=== PATIENT | male | born 1960 | race Two or more races ===

== ENCOUNTER 2019-11-02 21:22 | Inpatient (IN) | payer OTHER ==
--- NOTE | 2019-11-02 22:18 | PDOC ---
History of Present Illness - General Chief Complaint: Hematuria Stated Complaint: SURGERY Time Seen by Provider: 11/02/19 22:18 History Source: Patient Exam Limitations: No Limitations - History of Present Illness Initial Comments: 59 year old male with PMH HTN, HLD, BPH, CAD s/p 2 stents on ASA/Plavix (last took x5 days ago) presented to ED for hematuria s/p prostate biopsy today. Pt reported Dr. Melgar performed his procedure today, he saw blood mixed into his urine immediately, was told it was normal and would decrease. The urine turned to mohit blood, he called Dr. Melgar, who recommended he come to ED. Pt reported slight lightheadedness with activity. Pt denied chest pain, shortness of breath, abdominal pain, back pain, nausea, vomiting, diarrhea, constipation. Pt reported he does not feel he is retaining fluid, but does not think his usual Lasix 40 mg PO gave him the same urine output as usual. Pt actively voiding urine into a urinal. Pt reported he is on two antibiotics Dr. Melgar prescribed. ROS General: denied fever, chills, generalized weakness. HEENT: denied sore throat, rhinorrhea, ear pain. Cardiovascular: denied chest pain, palpitations, syncope, diaphoresis. Respiratory: denied shortness of breath, cough, sputum production, hemoptysis. Gastrointestinal: denied abdominal pain, nausea, vomiting, diarrhea, constipation, blood in stool. Genitourinary: admitted to hematuria. denied dysuria, increased urinary frequency, urinary incontinence, flank pain. Back: denied back pain. Musculoskeletal: denied joint pain, muscle pain, joint swelling. Neurological: denied headache, dizziness, numbness, tingling, weakness. Integumentary: denied rash, laceration, abrasion. Hematologic/Lymphatic: denied bruising or bleeding. PE Constitutional: Well-nourished, Well-developed, appearing stated age. HEENT: head is normocephalic, atraumatic. EOMI. PERRLA. Neck: supple. Full ROM. Cardiovascular: regular heart rhythm. no murmurs. no pericardial friction rub. Respiratory: clear to auscultation bilaterally. no crackles, rhonchi or wheezing. no stridor. Gastrointestinal: soft, nontender. no distension. normal bowel sounds. no rebound, guarding, masses. Back: negative for CVA tenderness bilaterally. Extremities: peripheral pulses intact. no lower extremity edema. Neurological: CN 2-12 grossly intact. moves all four extremities. Psych: awake, alert, oriented x3. follows commands. answers questions appropriately. Past History - Past Medical History Allergies/Adverse Reactions: Allergies Allergy/AdvReac Type Severity Reaction Status Date / Time No Known Allergies Allergy Verified 11/03/19 03:55 Home Medications: Ambulatory Orders Aspirin [ASA -] 81 mg PO DAILY 06/22/12 Clopidogrel Bisulfate [Plavix -] 75 mg PO DAILY 06/22/12 Furosemide [Lasix -] 40 mg PO DAILY 06/22/12 Ramipril [Altace] 5 mg PO DAILY 06/22/12 Carvedilol Phosphate [Coreg Cr -] 20 mg PO DAILY 04/29/15 Potassium Chloride [Klor-Con 10] 10 meq PO DAILY 04/29/15 Simvastatin [Zocor -] 40 mg PO HS 04/29/15 Pantoprazole Sodium 40 mg PO DAILY 11/02/19 Tadalafil 5 mg PO DAILY 11/02/19 - Psycho Social/Smoking Cessation Hx Smoking Status: Yes Smoking History: Former smoker Have you smoked in the past 12 months: Yes Number of Cigarettes Smoked Daily: 20 Information on smoking cessation initiated: No 'Breaking Loose' booklet given: 04/29/15 Hx Alcohol Use: No Substance Use Type: None *Physical Exam - Vital Signs Last Vital Signs Temp Pulse Resp BP Pulse Ox 98.2 F 89 19 135/77 98 11/02/19 21:26 11/02/19 21:26 11/02/19 21:26 11/02/19 21:26 11/02/19 21:26 ED Treatment Course - LABORATORY CBC & Chemistry Diagram: 11/04/19 07:50 11/04/19 07:55 Medical Decision Making - Medical Decision Making 59 year old male with above PMH sent to ED by Dr. Melgar for mohit hematuria after prostate biopsy today. Initial Vital Signs Temp Pulse Resp BP Pulse Ox 98.2 F 89 19 135/77 98 11/02/19 21:26 11/02/19 21:26 11/02/19 21:26 11/02/19 21:26 11/02/19 21:26 Afebrile. No tachycardia. No tachypnea. Hypertensive. No hypoxia on room air. Labs ordered: CBC, CMP, coags, UA/UC Imaging ordered: none Medications ordered: none Bedside Urinary Bladder POCUS showed: 566 cc urine post-void. debris material noted in bladder. Bedside Bilateral Renal POCUS showed: no hydronephrosis bilaterally. right kidney showed fluid filled well circumscribed collection, parapelvic cyst vs hydroureter vs hydronephrosis. -Old US showed right renal cyst 04/30/15 11/02/19 23:55 CBC WBC 10.4 K/mm3 (4.0-10.0) H 11/02/19 22:33 RBC 4.51 M/mm3 (4.00-5.60) 11/02/19 22:33 Hgb 12.2 GM/dL (11.7-16.9) 11/02/19 22:33 Hct 38.2 % (35.4-49) 11/02/19 22:33 MCV 84.7 fl (80-96) 11/02/19 22:33 MCH 27.0 pg (25.7-33.7) D 11/02/19 22:33 MCHC 31.9 g/dl (32.0-35.9) L 11/02/19 22:33 RDW 15.4 % (11.9-15.9) D 11/02/19 22:33 Plt Count 201 K/MM3 (134-434) D 11/02/19 22:33 MPV 10.0 fl (7.5-11.1) 11/02/19 22:33 Absolute Neuts (auto) 8.3 K/mm3 (1.5-8.0) H 11/02/19 22:33 Neutrophils % 79.9 % (42.8-82.8) 11/02/19 22:33 Lymphocytes % 12.2 % (8-40) D 11/02/19 22:33 Monocytes % 6.1 % (3.8-10.2) 11/02/19 22:33 Eosinophils % 1.1 % (0-4.5) 11/02/19 22:33 Basophils % 0.7 % (0-2.0) 11/02/19 22:33 Nucleated RBC % 0 % (0-0) 11/02/19 22:33 CMP Sodium 140 mmol/L (136-145) 11/02/19 22:33 Potassium 4.5 mmol/L (3.5-5.1) 11/02/19 22:33 Chloride 107 mmol/L (98-107) 11/02/19 22:33 Carbon Dioxide 28 mmol/L (21-32) 11/02/19 22:33 Anion Gap 5 MMOL/L (8-16) L 11/02/19 22:33 BUN 26.8 mg/dL (7-18) H 11/02/19 22:33 Creatinine 1.3 mg/dL (0.55-1.3) 11/02/19 22:33 Est GFR (CKD-EPI)AfAm 68.74 11/02/19 22:33 Est GFR (CKD-EPI)NonAf 59.31 11/02/19 22:33 Random Glucose 116 mg/dL (74-106) H 11/02/19 22:33 Calcium 8.6 mg/dL (8.5-10.1) 11/02/19 22:33 Total Bilirubin 0.3 mg/dL (0.2-1) 11/02/19 22:33 AST 18 U/L (15-37) 11/02/19 22:33 ALT 25 U/L (13-61) 11/02/19 22:33 Alkaline Phosphatase 66 U/L (45-117) 11/02/19 22:33 Total Protein 6.4 g/dl (6.4-8.2) 11/02/19 22:33 Albumin 3.3 g/dl (3.4-5.0) L 11/02/19 22:33 Dr. Melgar recommended Edwards 20F with leg bag and discharge. Pt to follow with him in the office tomorrow morning at [address] Melgar reported pt is on Flagyl and Augmentin. 11/03/19 00:07 Pt signed out to Dr. Britt, pending Edwards placement and UA collection. Discharge - Discharge Information Problems reviewed: Yes Clinical Impression/Diagnosis: Urinary retention Hematuria Qualifiers: Hematuria type: gross Qualified Code(s): R31.0 - Gross hematuria Condition: Improved Disposition: HOME - Admission No - Follow up/Referral - Patient Discharge Instructions - Post Discharge Activity
--- NOTE | 2019-11-02 23:03 | PDOC ---
Attending Attestation - Resident Resident Name: Elma Arnett - ED Attending Attestation I have performed the following: I have examined & evaluated the patient, The case was reviewed & discussed with the resident, I agree w/resident's findings & plan, Exceptions are as noted - HPI HPI: 11/03/19 03:10 See HPI documented by resident - Physicial Exam PE: 11/03/19 03:10 Agree with exam as documented by resident - Medical Decision Making 11/03/19 03:11 Glynn hematuria after prostate biopsy today, sent in by his urologist for evaluation. Initial gimenez that was placed initially was just hematuria but stopped flowing 2 /2 clots CBI was initiated, required repeated manual irrigation due to high clot load Admit Will continue CBI Dr Melgar to see at 9am
[2019-11-02 23:26] LABS: BASO % 0.7 % (0-2.0); EOS % 1.1 % (0-4.5); HEMATOCRIT 38.2 % (35.4-49); HEMOGLOBIN 12.2 GM/dL (11.7-16.9); LYMPH % 12.2 % (8-40); MCHC 31.9 g/dl (32.0-35.9); MEAN CELL VOLUME 84.7 fl (80-96); MONO % 6.1 % (3.8-10.2); NEUT % 79.9 % (42.8-82.8); PLATELET COUNT 201 K/MM3 (134-434); RBC 4.51 M/mm3 (4.00-5.60); RDW 15.4 % (11.9-15.9); WHITE BLOOD COUNT 10.4 K/mm3 (4.0-10.0)
[2019-11-02 23:40] LABS: INR 1.03 (0.83-1.09); PROTHROMBIN TIME (PATIENT) 12.1 SEC (9.7-13.0)
[2019-11-02 23:42] LABS: ACTIVATED PTT 30.4 SECONDS (25.2-36.5)
[2019-11-02 23:52] LABS: ALBUMIN 3.3 g/dl (3.4-5.0); BILIRUBIN,TOTAL 0.3 mg/dL (0.2-1); BLOOD UREA NITROGEN 26.8 mg/dL (7-18); CALCIUM 8.6 mg/dL (8.5-10.1); CREATININE 1.3 mg/dL (0.55-1.3); POTASSIUM 4.5 mmol/L (3.5-5.1); TOT PROT 6.4 g/dl (6.4-8.2)
[2019-11-03] MEDS ORDERED: LIDOCAINE HCL 2% JELLY 10 ML CARTRIDGE ONE ×2 (00:04→00:59)
[2019-11-03] MEDS ORDERED: LIDOCAINE HCL 2% JELLY 10 ML CARTRIDGE UR ONE (00:10)
[2019-11-03] MEDS ORDERED: morphine CARPU-JECT 4 MG/1 ML DISP.SYRIN IVPUSH ONE (00:48)
[2019-11-03] MEDS ORDERED: morphine SULFATE 4 MG/ML VIAL ONE (01:05)
[2019-11-03] MEDS ORDERED: HYDROmorphone HCL CARPU-JECT 2 MG/1 ML DISP.SYRIN IVPUSH ONE (01:36)
--- NOTE | 2019-11-03 02:12 | PDOC ---
*Physical Exam - Vital Signs Last Vital Signs Temp Pulse Resp BP Pulse Ox 98.2 F 89 19 135/77 98 11/02/19 21:26 11/02/19 21:26 11/02/19 21:26 11/02/19 21:26 11/02/19 21:26 - Physical Exam General Appearance: Yes: Nourished, Appropriately Dressed, Severe Distress HEENT: positive: Normal ENT Inspection, Normal Voice Neck: positive: Supple Respiratory/Chest: positive: Lungs Clear, Normal Breath Sounds Cardiovascular: positive: Regular Rhythm, Regular Rate, S1, S2 Vascular Pulses: Dorsalis-Pedis (R): 2+, Doralis-Pedis (L): 2+ Gastrointestinal/Abdominal: positive: Protuberent, Other (Suprapubic fullness) Male Genitalia: positive: normal genitalia, normal prostate. negative: testicular tenderness, testicular mass, epididymus tender, inguinal hernia, hernia, CVAT Rectal Exam: positive: normal rectal tone. negative: melena Lymphatic: negative: Adenopathy Musculoskeletal: positive: Normal Inspection. negative: CVA Tenderness Extremity: positive: Normal Capillary Refill, Normal Inspection, Normal Range of Motion Integumentary: positive: Normal Color, Dry, Warm Neurologic: positive: Fully Oriented, Alert, Normal Mood/Affect, Normal Response ED Treatment Course - LABORATORY CBC & Chemistry Diagram: 11/02/19 22:33 11/02/19 22:33 - ADDITIONAL ORDERS Additional order review: Laboratory Results 11/02/19 11/02/19 22:33 22:33 PT with INR 12.10 INR 1.03 PTT (Actin FS) 30.4 Sodium 140 Potassium 4.5 Chloride 107 Carbon Dioxide 28 Anion Gap 5 L BUN 26.8 H Creatinine 1.3 Est GFR (CKD-EPI)AfAm 68.74 Est GFR (CKD-EPI)NonAf 59.31 Random Glucose 116 H Calcium 8.6 Total Bilirubin 0.3 AST 18 ALT 25 Alkaline Phosphatase 66 Total Protein 6.4 Albumin 3.3 L 11/02/19 22:33 RBC 4.51 MCV 84.7 MCHC 31.9 L RDW 15.4 D MPV 10.0 Neutrophils % 79.9 Lymphocytes % 12.2 D Monocytes % 6.1 Eosinophils % 1.1 Basophils % 0.7 - Medications Given in the ED: ED Medications Discontinued Medications Generic Name Dose Route Start Last Admin Trade Name Freq PRN Reason Stop Dose Admin Lidocaine HCl 5 ml 11/03/19 00:10 11/03/19 00:34 Xylocaine 2% Uro-Jet UR 11/03/19 00:11 5 ml ONCE ONE Administration Morphine Sulfate 4 mg 11/03/19 00:48 11/03/19 01:25 Morphine Injection - IVPUSH 11/03/19 00:49 4 mg ONCE ONE Administration Medical Decision Making - Medical Decision Making Patient signed out to me pending gimenez placement and DC home so he can follow up with urology tomorrow morning at his appointment with [place] Melgar. The original gimenez was not draining anything because it kept forming clots. - We placed a 3 way gimenez for continuous bladder irrigation - Hannah syringe applied and removed multiple clots - Patient was in severe distress but now the CBI seems to be working Will re-assess after he receives 3 liters of CBI. If urine is clear and no more clots will consider discharging for his uro appt tmrw morning. Patient keeps forming clots in his CBI and every time a clot forms he experiences severe pain. - Clot taken out with hannah syringe Plan: Admit patient for 6 hours of CBI - Dr. Melgar says he will see him at 9 in the morning tomorrow. Discharge - Discharge Information Problems reviewed: Yes Clinical Impression/Diagnosis: Urinary retention Hematuria Qualifiers: Hematuria type: gross Qualified Code(s): R31.0 - Gross hematuria Condition: Improved Disposition: HOME - Admission Yes - Follow up/Referral Referrals: Vic Garay MD [Primary Care Provider] - [place] Melgar MD [Staff Physician] - - Patient Discharge Instructions Patient Printed Discharge Instructions: How to Care for Your Gimenez Catheter -- Male, DI for Hematuria, DI for Urinary Retention in Men Additional Instructions: Continue taking your antibiotics prescribed by Dr. Melgar. Follow up in Dr. Melgar's office tomorrow morning at 0900 AM. He is expecting you. Leave the urinary gimenez in place until you have seen Dr. Melgar. Follow up with your primary care doctor within 5 days regarding your Emergency Room visit. Return to the Emergency Department for increasing pain, increased bleeding, inability to void urine, fever, vomiting, chills, lightheadedness, passing out or any other new, worsening or concerning symptoms. - Post Discharge Activity Work/Back to School Note: Back to Work
[2019-11-03] MEDS ORDERED: SODIUM CHLORIDE 0.9% 500 ML INFUS.BAG IV ONE (04:34)
[2019-11-03 04:50] LABS: BASO % 0.8 % (0-2.0); EOS % 0.6 % (0-4.5); HEMATOCRIT 34.3 % (35.4-49); HEMOGLOBIN 11.2 GM/dL (11.7-16.9); LYMPH % 16.9 % (8-40); MCH 27.2 pg (25.7-33.7); MCHC 32.7 g/dl (32.0-35.9); MEAN CELL VOLUME 83.3 fl (80-96); MEAN PLT VOLUME 8.8 fl (7.5-11.1); MONO % 5.7 % (3.8-10.2); PLATELET COUNT 172 K/MM3 (134-434); RBC 4.12 M/mm3 (4.00-5.60); RDW 15.1 % (11.9-15.9); WHITE BLOOD COUNT 8.1 K/mm3 (4.0-10.0)
--- NOTE | 2019-11-03 04:57 | HP ---
Admitting History and Physical - Primary Care Physician PCP: Dr. Mart - Admission Chief Complaint: Mohit hematuria after prostate biopsy today History of Present Illness: 59 year old male with PMH HTN, HLD, BPH, CAD s/p 2 stents on ASA/Plavix (last took x5 days ago) presented to ED for hematuria s/p prostate biopsy today. Pt reported Dr. Melgar performed his procedure today, he saw blood mixed into his urine immediately, was told it was normal and would decrease. The urine turned to mohit blood, he called Dr. Melgar, who recommended he come to ED. Pt reported slight lightheadedness with activity. Pt denied chest pain, shortness of breath, abdominal pain, back pain, nausea, vomiting, diarrhea, constipation. Pt reported he is on two antibiotics Dr. Melgar prescribed. 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 History of Recent Travel: No Home Medications - Allergies Allergies/Adverse Reactions: Allergies Allergy/AdvReac Type Severity Reaction Status Date / Time No Known Allergies Allergy Verified 11/03/19 03:55 - Home Medications Home Medications: Ambulatory Orders Aspirin [ASA -] 81 mg PO DAILY 06/22/12 Clopidogrel Bisulfate [Plavix -] 75 mg PO DAILY 06/22/12 Furosemide [Lasix -] 40 mg PO DAILY 06/22/12 Ramipril [Altace] 2.5 mg PO DAILY 06/22/12 Carvedilol Phosphate [Coreg Cr -] 20 mg PO DAILY 04/29/15 Potassium Chloride [Klor-Con 10] 10 meq PO DAILY 04/29/15 Simvastatin [Zocor -] 40 mg PO HS 04/29/15 Pantoprazole Sodium 40 mg PO DAILY 11/02/19 Tadalafil 5 mg PO DAILY 11/02/19 Family Medical History Family Hx Congestive Heart Failure: Mother Review of Systems - Review of Systems Constitutional: reports: No Symptoms Eyes: reports: No Symptoms HENT: reports: No Symptoms Neck: reports: No Symptoms Cardiovascular: reports: No Symptoms Respiratory: reports: No Symptoms Gastrointestinal: reports: No Symptoms Genitourinary: reports: Hematuria Musculoskeletal: reports: No Symptoms Integumentary: reports: No Symptoms Neurological: reports: No Symptoms Endocrine: reports: No Symptoms Hematology/Lymphatic: reports: No Symptoms Psychiatric: reports: No Symptoms Physical Examination Vital Signs: Vital Signs Temperature 98.2 F 11/02/19 21:26 Pulse Rate 89 11/02/19 21:26 Respiratory Rate 19 11/02/19 21:26 Blood Pressure 135/77 11/02/19 21:26 O2 Sat by Pulse Oximetry (%) 98 11/02/19 21:26 Constitutional: Yes: Calm, Obese Eyes: Yes: Conjunctiva Clear, EOM Intact HENT: Yes: Atraumatic, Normocephalic Neck: Yes: Supple, Trachea Midline Cardiovascular: Yes: Regular Rate and Rhythm Respiratory: Yes: Regular, CTA Bilaterally Gastrointestinal: Yes: Normal Bowel Sounds, Soft Renal/: Yes: Gimenez Present, Hematuria Musculoskeletal: Yes: WNL Extremities: Yes: WNL Edema: No Peripheral Pulses WNL: Yes Integumentary: Yes: WNL Neurological: Yes: Alert, Oriented Labs: CBC, BMP 11/02/19 22:33 Imaging - Results Ultrasound: Report Reviewed (-Bedside Urinary Bladder US showed: 550 cc urine post-void. -Bedside bilateral renal US showed: no hydronephrosis bilaterally. right renal cyst.) Problem List - Problems (1) Gross hematuria Code(s): R31.0 - GROSS HEMATURIA (2) Urinary retention Code(s): R33.9 - RETENTION OF URINE, UNSPECIFIED (3) BPH (benign prostatic hyperplasia) Code(s): N40.0 - BENIGN PROSTATIC HYPERPLASIA WITHOUT LOWER URINRY TRACT SYMP (4) CHF (congestive heart failure) Code(s): I50.9 - HEART FAILURE, UNSPECIFIED (5) HTN (hypertension) Code(s): I10 - ESSENTIAL (PRIMARY) HYPERTENSION (6) HLD (hyperlipidemia) Code(s): E78.5 - HYPERLIPIDEMIA, UNSPECIFIED (7) CAD (coronary artery disease) Code(s): I25.10 - ATHSCL HEART DISEASE OF [place] CORONARY ARTERY W/O ANG PCTRS (8) GERD (gastroesophageal reflux disease) Code(s): K21.9 - GASTRO-ESOPHAGEAL REFLUX DISEASE WITHOUT ESOPHAGITIS Assessment/Plan 59 year old male with PMH HTN, HLD, BPH, CHF, CAD s/p 2 stents on ASA/Plavix ( last took x5 days ago) presented to ED for hematuria s/p prostate biopsy today. Mohit hematuria s/p prostate biopsy today, sent in by his urologist for evaluation. Gimenez that was placed noted with hematuria, however flow stopped due to clots CBI was initiated, requires repeated manual irrigation due to multiple clots. As per Dr. Melgar reported pt is on Flagyl and Augmentin. #Gross hematuria s/p prostate biopsy #Urinary retention #BPH -Bedside Urinary Bladder US showed: 550 cc urine post-void. -Bedside bilateral renal US showed: no hydronephrosis bilaterally. right renal cyst. - gimenez cath inserted no outpatient, placed on CBI with multiple clots, needs continues CBI and follow up urology - continue with CBI, remove clots with felicia syringe as needed - monitor I & O - monitor H/H - follow up urine cx - pain management PRN - NPO,until urology follows at 9 am - follow up ID in AM - will start patient on Rocephin 1g QD and flagyl 500mg TID #HTN, HLD #CAD s/p 2 stents #CHF -Hold plavix and ASA -Furosemide 40 mg PO DAILY -Ramipril 2.5 mg PO DAILY -Carvedilol 12.5 mg BID -Simvastatin 40 mg PO HS - Monitor BP closely, if less than 90/60 hold medication #GERD -Pantoprazole Sodium 40 mg PO DAILY FEN: s/p 1L NS, on CBI, monitor lytes and replete VTE: early ambulation, SCDs Dispo: Med-surg Visit type - Emergency Visit Emergency Visit: Yes ED Registration Date: 11/03/19 Care time: The patient presented to the Emergency Department on the above date and was hospitalized for further evaluation of their emergent condition. - New Patient This patient is new to me today: Yes Date on this admission: 11/03/19 - Critical Care Critical Care patient: No
[2019-11-03] MEDS ORDERED: ACETAMINOPHEN 325 MG TABLET (FP) PO PRN (05:23)
[2019-11-03] MEDS ORDERED: oxyCODONE HCL 5 MG TABLET PO PRN (05:23)
[2019-11-03] MEDS ORDERED: oxyCODONE HCL 5 MG TABLET ONE (07:40)
[2019-11-03] MEDS ORDERED: CEFTRIAXONE 1 GM/50 ML BAG ONE (09:41)
[2019-11-03] MEDS ORDERED: FUROSEMIDE 40 MG TABLET (FP) PO SCH (10:00)
[2019-11-03] MEDS ORDERED: RAMIPRIL 2.5 MG CAPSULE (FP) PO SCH (10:00)
[2019-11-03] MEDS ORDERED: TADALAFIL 5 MG PO SCH (10:00)
[2019-11-03] MEDS ORDERED: CARVEDILOL 12.5 MG TABLET (FP) PO SCH (10:00)
--- NOTE | 2019-11-03 10:24 | CON.ID ---
Consult Consult Specialty:: infectious disease Reason for Consultation:: hematuria post prostate biopsy - History of Present Illness Chief Complaint: hematuria History of Present Illness: 59 yo man with pmh of BPH,CAD, HTN present ed ED after he developed gross hematuria after prostate biopsy yesterday no fevers, no chills started on antibiotics day before procedure in ed developed clots requiring initiation of CBI he is comfortable no pain +bm yesterday per ED note on augmentin and flagyl per urologist etoh/cigarettes once every several months socially denies prior urologic procedures denies prior UTI or prior antibiotics besides ones started day before procedure - Past Medical History Cardio/Vascular: Yes: CAD (stents -2), CHF, HTN, Hyperlipdemia Gastrointestinal: Yes: GERD Renal/: Yes: BPH - Past Surgical History Additional Surgical History: bilateral carpal tunnel repair last year - Alcohol/Substance Use Hx Alcohol Use: No History of Substance Use: reports: None - Smoking History Smoking history: Current some day smoker Have you smoked in the past 12 months: Yes - Social History Usual Living Arrangement: With Spouse ADL: Independent 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 Place of : Other History of Recent Travel: No Home Medications - Allergies Allergies/Adverse Reactions: Allergies Allergy/AdvReac Type Severity Reaction Status Date / Time No Known Allergies Allergy Verified 11/03/19 03:55 - Home Medications Home Medications: Ambulatory Orders Aspirin [ASA -] 81 mg PO DAILY 06/22/12 Clopidogrel Bisulfate [Plavix -] 75 mg PO DAILY 06/22/12 Furosemide [Lasix -] 40 mg PO DAILY 06/22/12 Ramipril [Altace] 2.5 mg PO DAILY 06/22/12 Carvedilol Phosphate [Coreg Cr -] 20 mg PO DAILY 04/29/15 Potassium Chloride [Klor-Con 10] 10 meq PO DAILY 04/29/15 Simvastatin [Zocor -] 40 mg PO HS 04/29/15 Pantoprazole Sodium 40 mg PO DAILY 11/02/19 Tadalafil 5 mg PO DAILY 11/02/19 Family Medical History Family History: Denies Review of Systems - Review of Systems Constitutional: reports: No Symptoms Eyes: reports: No Symptoms HENT: reports: No Symptoms Neck: reports: No Symptoms Cardiovascular: reports: No Symptoms Respiratory: reports: No Symptoms Gastrointestinal: reports: No Symptoms Genitourinary: reports: Hematuria. denies: Burning, Discharge Musculoskeletal: reports: No Symptoms Physical Exam Vital Signs: Vital Signs Temperature 98.2 F 11/02/19 21:26 Pulse Rate 89 11/02/19 21:26 Respiratory Rate 19 11/02/19 21:26 Blood Pressure 135/77 11/02/19 21:26 O2 Sat by Pulse Oximetry (%) 98 11/02/19 21:26 Constitutional: Yes: Well Nourished, No Distress, Calm Eyes: Yes: Conjunctiva Clear HENT: Yes: Atraumatic, Normocephalic Neck: Yes: Supple Cardiovascular: Yes: Regular Rate and Rhythm Respiratory: Yes: Regular, CTA Bilaterally Gastrointestinal: Yes: Normal Bowel Sounds, Soft ...Rectal Exam: Yes: Deferred Renal/: Yes: Other (gimenez in place, CBI with blood tinged urine) Extremities: Yes: WNL Edema: No Neurological: Yes: Alert, Oriented Labs: CBC, BMP 11/03/19 04:44 11/02/19 22:33 Problem List - Problems (1) Gross hematuria Code(s): R31.0 - GROSS HEMATURIA (2) H/O prostate biopsy Code(s): Z98.890 - OTHER SPECIFIED POSTPROCEDURAL STATES Assessment/Plan continue rocephin/flagyl- denies prior history of utis, no fevers or chills no value to urine culture now on CBI po antibioitcswihen ready for d/c home
[2019-11-03] MEDS: PANTOPRAZOLE 40 MG TABLET (FP) PO SCH (10:50)
[2019-11-03] MEDS: CEFTRIAXONE 1 GM in DEXTROSE 5%-WATER - 50 ML IVPB SCH (11:22)
--- NOTE | 2019-11-03 11:38 | EKG ---
Test Reason : Blood Pressure : / mmHG Vent. Rate : 079 BPM Atrial Rate : 079 BPM P-R Int : 188 ms QRS Dur : 090 ms QT Int : 354 ms P-R-T Axes : 045 -29 019 degrees QTc Int : 405 ms SINUS RHYTHM WITH OCCASIONAL PREMATURE VENTRICULAR COMPLEXES LOW VOLTAGE QRS INFERIOR INFARCT (CITED ON OR BEFORE 29-APR-2015) ABNORMAL ECG WHEN COMPARED WITH ECG OF 29-APR-2015 12:43, PREMATURE VENTRICULAR COMPLEXES ARE NOW PRESENT Confirmed by BERTIN FUNEZ MD ([id number]) on 11/03/2019 11:38:30 AM Referred By: Confirmed By:BERTIN FUNEZ MD
[2019-11-03] MEDS ORDERED: SODIUM CHLORIDE 250 ML IV STA (11:49)
--- NOTE | 2019-11-03 11:56 | PN ---
Progress Note, Physician Chief Complaint: patient seen and examined complaining of dizziness CBI in progress, hematuria noted complaining of dysuria earlier in the morning - Current Medication List Current Medications: Active Medications Acetaminophen (Tylenol -) 650 mg PO Q6H PRN PRN Reason: PAIN LEVEL 1-5 Atorvastatin Calcium (Lipitor -) 20 mg PO HS TATI Carvedilol (Coreg -) 12.5 mg PO BID [facility] Last Admin: 11/03/19 11:35 Dose: Not Given Furosemide (Lasix -) 40 mg PO DAILY [facility] Last Admin: 11/03/19 10:50 Dose: 40 mg Metronidazole (Flagyl 500mg Premixed Ivpb -) 500 mg in 100 mls @ 100 mls/hr IVPB Q8H-IV TATI Last Admin: 11/03/19 10:03 Dose: 100 mls/hr Ceftriaxone Sodium 1 gm/ (Dextrose) 50 mls @ 100 mls/hr IVPB DAILY [facility]; Protocol Last Admin: 11/03/19 11:22 Dose: 100 mls/hr Sodium Chloride (Normal Saline -) 250 mls @ 250 mls/hr IV ASDIR STA Stop: 11/03/19 12:48 Oxycodone HCl (Roxicodone -) 5 mg PO Q6H PRN PRN Reason: PAIN LEVEL 6-10 Last Admin: 11/03/19 07:30 Dose: 5 mg Pantoprazole Sodium (Protonix -) 40 mg PO DAILY [facility] Last Admin: 11/03/19 10:50 Dose: 40 mg Ramipril (Altace -) 2.5 mg PO DAILY [facility] Last Admin: 11/03/19 11:35 Dose: Not Given - Objective Vital Signs: Vital Signs Temperature 98.4 F 11/03/19 10:55 Pulse Rate 68 11/03/19 10:55 Respiratory Rate 20 11/03/19 10:55 Blood Pressure 118/48 L 11/03/19 10:55 O2 Sat by Pulse Oximetry (%) 97 11/03/19 09:00 Constitutional: Yes: Calm Cardiovascular: Yes: Regular Rate and Rhythm, S1, S2 Respiratory: Yes: CTA Bilaterally Gastrointestinal: Yes: Normal Bowel Sounds, Soft Genitourinary: Yes: Edwards Present, Hematuria Edema: No Neurological: Yes: Alert, Oriented Labs: CBC, BMP 11/03/19 04:44 11/02/19 22:33 INR, PTT INR 1.03 (0.83-1.09) 11/02/19 22:33 Problem List - Problems (1) Gross hematuria Assessment/Plan: CBI in progress cbc check every 12 hrs urology FU iv abx ID consult appreciated Code(s): R31.0 - GROSS HEMATURIA (2) H/O prostate biopsy Assessment/Plan: awaiting biopsy results Code(s): Z98.890 - OTHER SPECIFIED POSTPROCEDURAL STATES (3) Dizziness Assessment/Plan: orthostatic secondary to intravascular depletion NS bolus hold diuretic and anti htn medications monitor cbc Code(s): R42 - DIZZINESS AND GIDDINESS
[2019-11-03 15:01] VITALS: BMI 35.4
[2019-11-03 15:28] LABS: BASO % 0.6 % (0-2.0); EOS % 1.6 % (0-4.5); HEMATOCRIT 36.9 % (35.4-49); HEMOGLOBIN 11.9 GM/dL (11.7-16.9); LYMPH % 17.7 % (8-40); MCH 26.7 pg (25.7-33.7); MCHC 32.2 g/dl (32.0-35.9); MEAN CELL VOLUME 83.1 fl (80-96); MEAN PLT VOLUME 10.2 fl (7.5-11.1); MONO % 7.6 % (3.8-10.2); NEUT % 72.5 % (42.8-82.8); PLATELET COUNT 192 K/MM3 (134-434); RBC 4.44 M/mm3 (4.00-5.60); RDW 15.4 % (11.9-15.9); WHITE BLOOD COUNT 7.7 K/mm3 (4.0-10.0)
--- NOTE | 2019-11-03 17:34 | CONSULT ---
Consult Consult Specialty:: UROLOGY Reason for Consultation:: Gross hematuria - History of Present Illness Chief Complaint: 59 Y/O Male patient with history of HT, CAD and BPH s/p prostate biopsy 1 day, he developed gross hematuria and clots retention. He admitted and 3 ways gimenez catheter inserted with CBI. He feels much better and catheter draining clear urine occasional clots pass. O/E soft lax abd. 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 History of Recent Travel: No Home Medications - Allergies Allergies/Adverse Reactions: Allergies Allergy/AdvReac Type Severity Reaction Status Date / Time No Known Allergies Allergy Verified 11/03/19 03:55 - Home Medications Home Medications: Ambulatory Orders Aspirin [ASA -] 81 mg PO DAILY 06/22/12 Clopidogrel Bisulfate [Plavix -] 75 mg PO DAILY 06/22/12 Furosemide [Lasix -] 40 mg PO DAILY 06/22/12 Ramipril [Altace] 2.5 mg PO DAILY 06/22/12 Carvedilol Phosphate [Coreg Cr -] 20 mg PO DAILY 04/29/15 Potassium Chloride [Klor-Con 10] 10 meq PO DAILY 04/29/15 Simvastatin [Zocor -] 40 mg PO HS 04/29/15 Pantoprazole Sodium 40 mg PO DAILY 11/02/19 Tadalafil 5 mg PO DAILY 11/02/19 Physical Exam Vital Signs: Vital Signs Temperature 98.2 F 11/03/19 14:54 Pulse Rate 77 11/03/19 14:54 Respiratory Rate 20 11/03/19 14:54 Blood Pressure 141/75 11/03/19 14:54 O2 Sat by Pulse Oximetry (%) 95 11/03/19 14:54 Labs: CBC, BMP 11/03/19 14:35 11/02/19 22:33 Assessment/Plan BPH and high PSA Gross hematuria post TRUS and biopsy. on Gimenez catheter and CBI Plan: keep CBI with manual bladder irrigation if clots keep Cefotriaxone and flagyl
[2019-11-03] MEDS: ATORVASTATIN CA 20 MG TABLET (FP) PO SCH (21:42)
[2019-11-03] MEDS ORDERED: PATIENT'S OWN MEDICATION (NON-FORMULARY) (Simvastatin 40 MG) PO SCH (22:00)
--- NOTE | 2019-11-03 23:16 | HOSP ---
Subjective - Review of Symptoms Events since last encounter: Hospitalist Encounter Notified by the RN that the patient's CBI is not running. She reports trying several times to irrigate the tubing without success. Was asked to assess. Arrived to bedside, patient is AAOx3, denies abdominal pain. RN at bedside, attempted to irrigate tubing, met with resistance. Advised RN to clamp tubing and call the Urologist. Assessment: This is a 59 year old male with a PMHx of HTN, HLD, BPH, CAD s/p 2 stents on ASA /Plavix (last took x5 days ago). Who presented to ED for hematuria s/p prostate biopsy. Admitted for Urinary Retention Physical Examination Vital Signs: Vital Signs Temperature 98.5 F 11/03/19 20:27 Pulse Rate 78 11/03/19 20:27 Respiratory Rate 20 11/03/19 14:54 Blood Pressure 118/48 L 11/03/19 20:27 O2 Sat by Pulse Oximetry (%) 95 11/03/19 14:54 Constitutional: Yes: Well Nourished, Anxious Eyes: Yes: WNL, Conjunctiva Clear, EOM Intact, PERRL HENT: Yes: WNL, Atraumatic, Normocephalic Neck: Yes: WNL, Supple, Trachea Midline Cardiovascular: Yes: WNL, Regular Rate and Rhythm, S1, S2 Respiratory: Yes: WNL, Regular, CTA Bilaterally Gastrointestinal: Yes: Normal Bowel Sounds, Soft, Abdomen, Obese Renal/: Yes: Edwards Present (CBI) Neurological: Yes: WNL, Alert, Cran Nerves II-XII Intact ...Motor Strength: WNL Psychiatric: Yes: WNL, Alert, Oriented Labs: CBC, BMP 11/03/19 14:35 11/02/19 22:33 Laboratory Results - last 24 hr 11/02/19 11/02/19 11/02/19 22:33 22:33 22:33 WBC 10.4 H RBC 4.51 Hgb 12.2 Hct 38.2 MCV 84.7 MCH 27.0 D MCHC 31.9 L RDW 15.4 D Plt Count 201 D MPV 10.0 Absolute Neuts (auto) 8.3 H Neutrophils % 79.9 Lymphocytes % 12.2 D Monocytes % 6.1 Eosinophils % 1.1 Basophils % 0.7 Nucleated RBC % 0 PT with INR 12.10 INR 1.03 PTT (Actin FS) 30.4 Sodium 140 Potassium 4.5 Chloride 107 Carbon Dioxide 28 Anion Gap 5 L BUN 26.8 H Creatinine 1.3 Est GFR (CKD-EPI)AfAm 68.74 Est GFR (CKD-EPI)NonAf 59.31 POC Glucometer Random Glucose 116 H Calcium 8.6 Total Bilirubin 0.3 AST 18 ALT 25 Alkaline Phosphatase 66 Total Protein 6.4 Albumin 3.3 L Blood Type Antibody Screen 11/02/19 11/03/19 11/03/19 22:33 04:44 09:50 WBC 8.1 RBC 4.12 Hgb 11.2 L Hct 34.3 L MCV 83.3 MCH 27.2 MCHC 32.7 RDW 15.1 Plt Count 172 MPV 8.8 D Absolute Neuts (auto) 6.1 Neutrophils % 76.0 Lymphocytes % 16.9 D Monocytes % 5.7 Eosinophils % 0.6 Basophils % 0.8 Nucleated RBC % 0 PT with INR INR PTT (Actin FS) Sodium Potassium Chloride Carbon Dioxide Anion Gap BUN Creatinine Est GFR (CKD-EPI)AfAm Est GFR (CKD-EPI)NonAf POC Glucometer Random Glucose Calcium Total Bilirubin AST ALT Alkaline Phosphatase Total Protein Albumin Blood Type O NEGATIVE O NEGATIVE Antibody Screen Negative 11/03/19 11/03/19 13:28 14:35 WBC 7.7 RBC 4.44 Hgb 11.9 Hct 36.9 MCV 83.1 MCH 26.7 MCHC 32.2 RDW 15.4 Plt Count 192 MPV 10.2 D Absolute Neuts (auto) 5.6 Neutrophils % 72.5 Lymphocytes % 17.7 Monocytes % 7.6 Eosinophils % 1.6 D Basophils % 0.6 Nucleated RBC % 0 PT with INR INR PTT (Actin FS) Sodium Potassium Chloride Carbon Dioxide Anion Gap BUN Creatinine Est GFR (CKD-EPI)AfAm Est GFR (CKD-EPI)NonAf POC Glucometer 95 Random Glucose Calcium Total Bilirubin AST ALT Alkaline Phosphatase Total Protein Albumin Blood Type Antibody Screen Intake & Output 10/31/19 11/01/19 11/02/19 11/03/19 23:59 23:59 23:59 23:59 Intake Total 250 Output Total 3900 Balance -3650 Weight 104.326 kg 108.919 kg Current Medications Generic Name Dose Route Start Last Admin Trade Name Freq PRN Reason Stop Dose Admin Acetaminophen 650 mg 11/03/19 05:23 Tylenol - PO Q6H PRN PAIN LEVEL 1-5 Atorvastatin Calcium 20 mg 11/03/19 22:00 11/03/19 21:42 Lipitor - PO 20 mg HS TATI Administration Metronidazole 500 mg in 100 mls @ 100 mls/hr 11/03/19 10:00 11/03/19 17:24 Flagyl 500mg Premixed Ivpb - IVPB 100 mls/hr Q8H-IV TATI Administration Ceftriaxone Sodium 1 gm/ 50 mls @ 100 mls/hr 11/03/19 10:00 11/03/19 11:22 Dextrose IVPB 100 mls/hr DAILY TATI Administration Protocol Oxycodone HCl 5 mg 11/03/19 05:23 11/03/19 07:30 Roxicodone - PO 5 mg Q6H PRN Administration PAIN LEVEL 6-10 Pantoprazole Sodium 40 mg 11/03/19 10:00 11/03/19 10:50 Protonix - PO 40 mg DAILY TATI Administration Hospitalist Encounter Outcome: RN spoke with the covering Urologist, informed him of aurora's events, he will come in to see the patient.
[2019-11-04 08:52] LABS: BASO % 0.9 % (0-2.0); EOS % 1.7 % (0-4.5); HEMATOCRIT 35.8 % (35.4-49); HEMOGLOBIN 11.6 GM/dL (11.7-16.9); LYMPH % 21.7 % (8-40); MCH 27.1 pg (25.7-33.7); MCHC 32.3 g/dl (32.0-35.9); MEAN CELL VOLUME 83.7 fl (80-96); MEAN PLT VOLUME 9.5 fl (7.5-11.1); NEUT % 67.7 % (42.8-82.8); PLATELET COUNT 164 K/MM3 (134-434); RBC 4.28 M/mm3 (4.00-5.60); RDW 15.2 % (11.9-15.9); WHITE BLOOD COUNT 6.1 K/mm3 (4.0-10.0)
[2019-11-04 09:18] LABS: BLOOD UREA NITROGEN 18.9 mg/dL (7-18); CALCIUM 8.6 mg/dL (8.5-10.1); POTASSIUM 4.1 mmol/L (3.5-5.1)
[2019-11-04] MEDS ORDERED: cefTRIAXone SODIUM 1 GM VIAL ONE (09:29)
[2019-11-04] MEDS ORDERED: DEXTROSE 5%-WATER - 50 ML IVPB ONE (09:29)
[2019-11-04] MEDS: CEFTRIAXONE 1 GM in DEXTROSE 5%-WATER - 50 ML IVPB SCH (09:52)
[2019-11-04] MEDS: PANTOPRAZOLE 40 MG TABLET (FP) PO SCH (09:52)
--- NOTE | 2019-11-04 11:22 | PN ---
Progress Note (short form) - Note Progress Note: UROLOGY NOTE s/p TRUS AND BIOPSY developed clots retention, patient was seen last night 1.00 am and gimenez catheter removed per patient request, he couldnot urinate today morning and bladder scan was 400ml. O/E distended bladder [address] gimenez catheter inserted and drained 400ml urine. Plan: continue CBI and IV abx
--- NOTE | 2019-11-04 11:25 | PN ---
Progress Note, Physician Chief Complaint: AWAKE ALERT EVENTS AND NOTES REVIEWED - Current Medication List Current Medications: Active Medications Acetaminophen (Tylenol -) 650 mg PO Q6H PRN PRN Reason: PAIN LEVEL 1-5 Atorvastatin Calcium (Lipitor -) 20 mg PO HS [facility] Last Admin: 11/03/19 21:42 Dose: 20 mg Metronidazole (Flagyl 500mg Premixed Ivpb -) 500 mg in 100 mls @ 100 mls/hr IVPB Q8H-IV TATI Last Admin: 11/04/19 10:45 Dose: 100 mls/hr Ceftriaxone Sodium 1 gm/ (Dextrose) 50 mls @ 100 mls/hr IVPB DAILY [facility]; Protocol Last Admin: 11/04/19 09:52 Dose: 100 mls/hr Oxycodone HCl (Roxicodone -) 5 mg PO Q6H PRN PRN Reason: PAIN LEVEL 6-10 Last Admin: 11/03/19 07:30 Dose: 5 mg Pantoprazole Sodium (Protonix -) 40 mg PO DAILY [facility] Last Admin: 11/04/19 09:52 Dose: 40 mg - Objective Vital Signs: Vital Signs Temperature 98 F 11/04/19 05:52 Pulse Rate 71 11/04/19 05:52 Respiratory Rate 20 11/04/19 09:00 Blood Pressure 91/55 L 11/04/19 05:52 O2 Sat by Pulse Oximetry (%) 97 11/04/19 09:00 Constitutional: Yes: Mild Distress Cardiovascular: Yes: Regular Rate and Rhythm Respiratory: Yes: WNL Gastrointestinal: Yes: WNL Genitourinary: Yes: Glover Present, Hematuria Musculoskeletal: Yes: WNL Extremities: Yes: WNL Edema: No Peripheral Pulses WNL: Yes Integumentary: Yes: WNL Wound/Incision: Yes: Clean/Dry Neurological: Yes: WNL ...Motor Strength: WNL Psychiatric: Yes: WNL Labs: CBC, BMP 11/04/19 07:50 11/04/19 07:55 INR, PTT INR 1.03 (0.83-1.09) 11/02/19 22:33 Problem List - Problems (1) BPH (benign prostatic hyperplasia) Code(s): N40.0 - BENIGN PROSTATIC HYPERPLASIA WITHOUT LOWER URINRY TRACT SYMP (2) CAD (coronary artery disease) Code(s): I25.10 - ATHSCL HEART DISEASE OF [place] CORONARY ARTERY W/O ANG PCTRS (3) Gross hematuria Code(s): R31.0 - GROSS HEMATURIA (4) H/O prostate biopsy Code(s): Z98.890 - OTHER SPECIFIED POSTPROCEDURAL STATES (5) HLD (hyperlipidemia) Code(s): E78.5 - HYPERLIPIDEMIA, UNSPECIFIED (6) HTN (hypertension) Code(s): I10 - ESSENTIAL (PRIMARY) HYPERTENSION (7) Urinary retention Code(s): R33.9 - RETENTION OF URINE, UNSPECIFIED (8) Urinary tract infection Code(s): N39.0 - URINARY TRACT INFECTION, SITE NOT SPECIFIED Assessment/Plan IV ABX CONTINUE GLOVER WITH CBI UROLOGY EVAL APPRECIATED PAIN CONTROL REMOVE GLOVER WEDNESDAY PER
[2019-11-04] MEDS: ATORVASTATIN CA 20 MG TABLET (FP) PO SCH (21:31)
[2019-11-05] MEDS ORDERED: cefTRIAXone SODIUM 1 GM VIAL ONE (09:16)
[2019-11-05] MEDS ORDERED: DEXTROSE 5%-WATER - 50 ML IVPB ONE (09:16)
[2019-11-05] MEDS: PANTOPRAZOLE 40 MG TABLET (FP) PO SCH (09:19)
[2019-11-05] MEDS: CEFTRIAXONE 1 GM in DEXTROSE 5%-WATER - 50 ML IVPB SCH (09:21)
--- NOTE | 2019-11-05 11:37 | PN ---
Progress Note, Physician Chief Complaint: AWAKE ALERT FEELS CONGESTED NOT ON HIS LASIX - Current Medication List Current Medications: Active Medications Acetaminophen (Tylenol -) 650 mg PO Q6H PRN PRN Reason: PAIN LEVEL 1-5 Atorvastatin Calcium (Lipitor -) 20 mg PO HS [facility] Last Admin: 11/04/19 21:31 Dose: 20 mg Carvedilol (Coreg Cr -) 20 mg PO DAILY [facility] Metronidazole (Flagyl 500mg Premixed Ivpb -) 500 mg in 100 mls @ 100 mls/hr IVPB Q8H-IV [facility] Last Admin: 11/05/19 10:00 Dose: 100 mls/hr Ceftriaxone Sodium 1 gm/ (Dextrose) 50 mls @ 100 mls/hr IVPB DAILY [facility]; Protocol Last Admin: 11/05/19 09:21 Dose: 100 mls/hr Oxycodone HCl (Roxicodone -) 5 mg PO Q6H PRN PRN Reason: PAIN LEVEL 6-10 Last Admin: 11/03/19 07:30 Dose: 5 mg Pantoprazole Sodium (Protonix -) 40 mg PO DAILY [facility] Last Admin: 11/05/19 09:19 Dose: 40 mg - Objective Vital Signs: Vital Signs Temperature 98.2 F 11/05/19 06:06 Pulse Rate 75 11/05/19 06:06 Respiratory Rate 20 11/05/19 06:06 Blood Pressure 114/67 11/05/19 06:06 O2 Sat by Pulse Oximetry (%) 98 11/04/19 21:00 Constitutional: Yes: Mild Distress Cardiovascular: Yes: WNL Respiratory: Yes: WNL Gastrointestinal: Yes: WNL Genitourinary: Yes: Glover Present (CBI WITH LIGHT HEMATUREA) Musculoskeletal: Yes: WNL Extremities: Yes: WNL Edema: No Wound/Incision: Yes: Clean/Dry Neurological: Yes: WNL ...Motor Strength: WNL Psychiatric: Yes: WNL Labs: CBC, BMP 11/04/19 07:50 11/04/19 07:55 INR, PTT INR 1.03 (0.83-1.09) 11/02/19 22:33 Problem List - Problems (1) BPH (benign prostatic hyperplasia) Code(s): N40.0 - BENIGN PROSTATIC HYPERPLASIA WITHOUT LOWER URINRY TRACT SYMP (2) CAD (coronary artery disease) Code(s): I25.10 - ATHSCL HEART DISEASE OF [place] CORONARY ARTERY W/O ANG PCTRS (3) Gross hematuria Code(s): R31.0 - GROSS HEMATURIA (4) H/O prostate biopsy Code(s): Z98.890 - OTHER SPECIFIED POSTPROCEDURAL STATES (5) HLD (hyperlipidemia) Code(s): E78.5 - HYPERLIPIDEMIA, UNSPECIFIED (6) HTN (hypertension) Code(s): I10 - ESSENTIAL (PRIMARY) HYPERTENSION (7) Urinary retention Code(s): R33.9 - RETENTION OF URINE, UNSPECIFIED (8) Urinary tract infection Code(s): N39.0 - URINARY TRACT INFECTION, SITE NOT SPECIFIED Assessment/Plan IV ABX CONTINUE GLOVER WITH CBI UROLOGY EVAL APPRECIATED PAIN CONTROL REMOVE GLOVER WEDNESDAY PER RESTART COREG/ALTACE/LASIX PLAVIX AND ASA ON HOLD WHILE HAVING DAMON BLOOD HEMATUREA
[2019-11-05] MEDS: CARVEDILOL PHOSPHATE CR 20 MG CAPSULE PO SCH (12:37)
[2019-11-05] MEDS: RAMIPRIL 2.5 MG CAPSULE (FP) PO SCH (12:37)
[2019-11-05] MEDS: FUROSEMIDE 40 MG TABLET (FP) PO SCH (12:37)
[2019-11-05] MEDS: ATORVASTATIN CA 20 MG TABLET (FP) PO SCH (21:54)
[2019-11-06] MEDS ORDERED: DEXTROSE 5%-WATER - 50 ML IVPB ONE (09:29)
[2019-11-06] MEDS ORDERED: cefTRIAXone SODIUM 1 GM VIAL ONE (09:29)
[2019-11-06] MEDS: CARVEDILOL PHOSPHATE CR 20 MG CAPSULE PO SCH (09:54)
[2019-11-06] MEDS: PANTOPRAZOLE 40 MG TABLET (FP) PO SCH (09:54)
[2019-11-06] MEDS: FUROSEMIDE 40 MG TABLET (FP) PO SCH (09:54)
[2019-11-06] MEDS: RAMIPRIL 2.5 MG CAPSULE (FP) PO SCH (09:55)
--- NOTE | 2019-11-06 12:19 | DS ---
Physical Examination Vital Signs: Vital Signs Temperature 98.0 F 11/05/19 23:07 Pulse Rate 72 11/05/19 23:07 Respiratory Rate 20 11/05/19 23:07 Blood Pressure 115/64 11/05/19 23:07 O2 Sat by Pulse Oximetry (%) 97 11/05/19 21:00 Constitutional: Yes: Calm Cardiovascular: Yes: Regular Rate and Rhythm, S1, S2 Respiratory: Yes: CTA Bilaterally Gastrointestinal: Yes: Normal Bowel Sounds, Soft Edema: No Neurological: Yes: Alert, Oriented Labs: CBC, BMP 11/04/19 07:50 11/04/19 07:55 Discharge Summary Problems reviewed: Yes Reason For Visit: HEMATURIA,RETENTION OF URINE Current Active Problems BPH (benign prostatic hyperplasia) (Acute) CAD (coronary artery disease) (Acute) CHF (congestive heart failure) (Acute) Dizziness (Acute) GERD (gastroesophageal reflux disease) (Acute) Gross hematuria (Acute) H/O prostate biopsy (Acute) HLD (hyperlipidemia) (Acute) HTN (hypertension) (Acute) Hematuria (Acute) Urinary retention (Acute) Hospital Course: 59 year old male with PMH HTN, HLD, BPH, CAD s/p 2 stents on ASA/Plavix (last took x5 days ago) presented to ED for hematuria s/p prostate biopsy today. Pt reported Dr. Melgar performed his procedure today, he saw blood mixed into his urine immediately, was told it was normal and would decrease. The urine turned to mohit blood, he called Dr. Melgar, who recommended he come to ED. Pt reported slight lightheadedness with activity. Pt denied chest pain, shortness of breath, abdominal pain, back pain, nausea, vomiting, diarrhea, constipation. Pt reported he is on two antibiotics Dr. Melgar prescribed. patient got iv abx and CBI now no more hematuria stopped aspirin plavix nitrofurantoin 100mg po bid for 7 days urology to see patinet today and then go home on antibiotics Condition: Improved - Instructions Referrals: Vic Garay MD [Primary Care Provider] - - Home Medications Comprehensive Discharge Medication List: Ambulatory Orders Aspirin [ASA -] 81 mg PO DAILY 06/22/12 Clopidogrel Bisulfate [Plavix -] 75 mg PO DAILY 06/22/12 Furosemide [Lasix -] 40 mg PO DAILY 06/22/12 Ramipril [Altace] 5 mg PO DAILY 06/22/12 Carvedilol Phosphate [Coreg Cr -] 20 mg PO DAILY 04/29/15 Potassium Chloride [Klor-Con 10] 10 meq PO DAILY 04/29/15 Simvastatin [Zocor -] 40 mg PO HS 04/29/15 Pantoprazole Sodium 40 mg PO DAILY 11/02/19 Tadalafil 5 mg PO DAILY 11/02/19
[2019-11-06] MEDS: CEFTRIAXONE 1 GM in DEXTROSE 5%-WATER - 50 ML IVPB SCH (13:08)
[2019-11-06 14:59] VITALS: BP 110/63; PULSE 77; TEMP 98
--- NOTE | 2019-11-06 17:09 | PN ---
Progress Note (short form) - Note Progress Note: UROLOGY NOTE S/P D/C gimenez catheter no paon void well no hematuria with good urine flow. Plan: Continue oral abx and cialis 5 mg daily RTC 2 weeks.
== END 2019-11-06 18:47 | disposition home or self-care (01) | DRG 921 ==
LOC: JER 21:22 → JERBED 11-03 02:55 → J6S 11-03 13:57
PROVIDERS: ADMIT Family Medicine; ATTEND Family Medicine
DX: N99.820 Postprocedural hemorrhage of a genitourinary system organ or structure following a genitourinary system procedure (principal); Y83.8 Other surgical procedures as the cause of abnormal reaction of the patient, or of later complication, without mention of misadventure at the time of the procedure; R31.0 Gross hematuria; N40.0 Benign prostatic hyperplasia without lower urinary tract symptoms; I25.10 Atherosclerotic heart disease of native coronary artery without angina pectoris; Z98.61 Coronary angioplasty status; K21.9 Gastro-esophageal reflux disease without esophagitis; E78.5 Hyperlipidemia, unspecified; R33.9 Retention of urine, unspecified; I50.9 Heart failure, unspecified; I10 Essential (primary) hypertension; R42 Dizziness and giddiness; E66.9 Obesity, unspecified; Z68.35 Body mass index [BMI] 35.0-35.9, adult
CPT/HCPCS: 36415; 80048; 80053; 82962; 85025; 85610; 85730; 86850; 86900; 86901; 93005; 93010; 99285-25